=== PATIENT | male | born 1995 | race African-American/Black ===

== ENCOUNTER 2018-06-25 00:13 | Observation (INO) | payer SELFPAY ==
[~2018-06-25] VITALS: Ht 188 cm; Wt 86.2 kg
[2018-06-25] MEDS ORDERED: SODIUM CHLORIDE 0.9% 1,000 ML IV ONE (01:45)
[2018-06-25 02:58] LABS: Urine Bacteria FEW /hpf (None Seen); Urine Blood Negative /uL (Negative); Urine Mucus FEW (None Seen); Urine Specific Gravity 1.032 (1.001-1.035); Urine Sperm PRESENT /hpf (None Seen); Urine WBC 3 /hpf (0 - 3)
[2018-06-25 03:09] LABS: Alcohol, Urine < 3.0 mg/dL (0-5); Amphetamine Screen, Urine NEGATIVE (NEGATIVE); Barbiturate Scree,Urine NEGATIVE (NEGATIVE); Benzodiazephine Screen, Urine NEGATIVE (NEGATIVE); Cannabinoid Screen, Urine NEGATIVE (NEGATIVE); Cocaine Screen, Urine NEGATIVE (NEGATIVE); Opiate Scree,Urine NEGATIVE (NEGATIVE); Phencyclidine Screen, Urine NEGATIVE (NEGATIVE)
[2018-06-25] MEDS ORDERED: TETANUS-DIPTH-ACEL PERTUSSIS 0.5ML SYRG IM ONE ×2 (03:15→04:05)
[2018-06-25 03:30] VITALS: BP 129/53
[2018-06-25 03:42] LABS: Basophils # (auto) 0 uL; Basophils % (auto) 0.4 % (0.0-2.0); Eosinophils # (auto) 0 uL; Eosinophils % (auto) 0.5 % (0.0-7.0); Hematocrit 41.6 % (41.0-53.0); Lymphocytes # (auto) 1.3 uL; Lymphocytes % (auto) 18.5 % (10.0-50.0); Mean Corpuscular Hemoglobin 29.7 pg (28.0-32.0); Mean Corpuscular Hgb Conc. 33.5 g/dL (32.0-36.0); Mean Corpuscular Volume 88.5 fL (80.0-100.0); Monocytes # (auto) 0.4 uL; Monocytes % (auto) 6.5 % (0.0-12.0); Neutrophils % (auto) 74.1 % (37.0-80.0); Platelet Count (auto) 203 10^3/uL (140-450); Red Cell Distribution Width 13.1 % (11.8-14.3); White Blood Cell 6.8 10^3/uL (4.4-10.8)
[2018-06-25 03:59] LABS: Albumin 4.2 g/dL (3.4-5.0); Calcium 8.9 mg/dL (8.5-10.1); Potassium 3.8 mmol/L (3.5-5.1)
[2018-06-25 04:01] LABS: BUN/Creatinine Ratio 10.5
[2018-06-25 04:17] LABS: Bilirubin, Total 0.9 mg/dL (0.2-1.0); Total Protein 7.7 g/dL (6.4-8.2)
== END 2018-06-25 05:00 | disposition home or self-care (01) | DRG 605 ==
LOC: EDBD 00:13 → ER 00:13 → OVERFLOW 00:14 → ER 05:00
PROVIDERS: ADMIT Emergency Medicine; ATTEND Emergency Medicine
DX: S00.81XA Abrasion of other part of head, initial encounter (principal); V89.2XXA Person injured in unspecified motor-vehicle accident, traffic, initial encounter; Y93.89 Activity, other specified; Y92.410 Unspecified street and highway as the place of occurrence of the external cause; Y99.8 Other external cause status; Z23 Encounter for immunization
CPT/HCPCS: 36415; 70450; 71250; 72125; 74176; 80053; 80307; 80320; 81001; 85025; 90471; 90715; 99285; G0378; J7030